=== PATIENT | female | born 1930 | race Asian ===

== ENCOUNTER → 2017-11-29 | Outpatient (CLI) | payer MEDICARE ==
[~2017-11-29] MED LIST: AMLO-111 PO; AMLO-113 PO; CHOL200018 PO; CHOL500050 PO; DEN60I SUBQ; DOCU100T13 PO; ERGO500037 PO; KET10 PO; LISI-374 PO; MULT-1372 PO; PRAZ1CAP26 PO; PRAZ2CAP26 PO; SERT25TA90 PO; TOBR5DRO OP; TRAM-420 PO; TRIA15CR40 TP
== END ==
LOC: AMB 10:25
PROVIDERS: ATTEND Nurse Practitioner
DX: F03.91 Unspecified dementia, unspecified severity, with behavioral disturbance (principal)
CPT/HCPCS: A0425; A0428